=== PATIENT | female | born 1985 | race Hispanic/Latino ===

== ENCOUNTER 2021-02-18 17:11 | Emergency (ER) | payer OTHER ==
[~2021-02-18] VITALS: Ht 154.9 cm; Wt 99.8 kg
[2021-02-18 17:17] VITALS: BP 129/76
== END 2021-02-18 21:13 | disposition left against medical advice (07) ==
LOC: EDH 17:11 → EEVIPCON 17:11 → EDH 21:13
DX: M54.9 Dorsalgia, unspecified (principal); Z53.21 Procedure and treatment not carried out due to patient leaving prior to being seen by health care provider

== ENCOUNTER 2022-07-25 14:45 | Emergency (ER) | payer OTHER ==
[~2022-07-25] VITALS: Ht 154.9 cm; Wt 78.0 kg
[2022-07-25 14:50] VITALS: BP 111/57
== END 2022-07-25 15:49 | disposition left against medical advice (07) ==
LOC: EDH 14:45
DX: R07.9 Chest pain, unspecified (principal); Z53.21 Procedure and treatment not carried out due to patient leaving prior to being seen by health care provider
CPT/HCPCS: 93005; 99281